=== PATIENT | male | born 1975 | race African-American/Black ===

== ENCOUNTER 2022-12-01 02:33 | Emergency (ER) | payer OTHER ==
[2022-12-01 03:29] LABS: AMPHETAMINES,URINE NEGATIVE (NEGATIVE); BARBITURATES,URINE NEGATIVE (NEGATIVE); BENZODIAZEPINE,URINE NEGATIVE (NEGATIVE); MDMA (ECSTASY), URINE NEGATIVE (NEGATIVE); METHADONE,URINE NEGATIVE (NEGATIVE); METHAMPHETAMINES,URINE NEGATIVE (NEGATIVE); OPIATES,URINE NEGATIVE (NEGATIVE); OXYCODONE,URINE NEGATIVE (NEGATIVE); PHENCYCLIDINE,URINE NEGATIVE (NEGATIVE); TCA,URINE NEGATIVE (NEGATIVE)
[2022-12-01 03:38] LABS: CHLORIDE,CL 102 mEq/L (98-106); ESTIMATED GFR 75 mL/min (>=60); SODIUM,NA 140 mEq/L (136-145)
[2022-12-01] MEDS: Diphtheria,Pertussis(Acell),Tetanus Vaccine 0.5 ML Syringe IM ONE (03:55)
[2022-12-01] MEDS: HYDROmorphone 1 MG/ML Syringe IVPUSH ONE (04:19)
[2022-12-01] MEDS: Take Home: Cyclobenzaprine 10 MG Tab, 4 Tab Pack PO ONE (05:34)
[2022-12-01 06:21] VITALS: BP 162/107; PULSE 62
== END 2022-12-01 13:05 | disposition home or self-care (01) ==
LOC: CC.ED 02:33
DX: S13.4XXA Sprain of ligaments of cervical spine, initial encounter (principal); M25.572 Pain in left ankle and joints of left foot; I10 Essential (primary) hypertension; E11.9 Type 2 diabetes mellitus without complications; Z23 Encounter for immunization; Z79.84 Long term (current) use of oral hypoglycemic drugs; Z79.899 Other long term (current) drug therapy; V53.5XXA Driver of pick-up truck or van injured in collision with car, pick-up truck or van in traffic accident, initial encounter; Y92.410 Unspecified street and highway as the place of occurrence of the external cause
CPT/HCPCS: 36415; 70450; 71045; 72125; 73610-LT; 80053; 80305-QW; 80307; 81001; 85025; 90471; 90715; 96374; 99284; 99285-25; A9270-GY; J1170